=== PATIENT | male | born 1960 | race Hispanic/Latino ===

== ENCOUNTER → 2017-06-05 | Outpatient (CLI) | payer OTHER | END | disposition home or self-care (01) | LOC: GMA 15:57 | PROVIDERS: ATTEND Physician Assistant | DX: R50.9 Fever, unspecified (principal) ==

== ENCOUNTER → 2017-07-10 | Outpatient (CLI) | payer OTHER | END | disposition home or self-care (01) | LOC: GMAJ 11:50 | PROVIDERS: ATTEND Family Medicine | DX: Z00.00 Encounter for general adult medical examination without abnormal findings (principal) ==

== ENCOUNTER → 2017-08-03 | Outpatient (CLI) | payer OTHER | END | disposition home or self-care (01) | LOC: US 08:37 | PROVIDERS: ATTEND Family Medicine | DX: I65.29 Occlusion and stenosis of unspecified carotid artery (principal) ==

== ENCOUNTER → 2018-07-25 | Outpatient (CLI) | payer OTHER | LOC: GMAJ 10:40 | PROVIDERS: ATTEND Family Medicine | DX: Z00.00 Encounter for general adult medical examination without abnormal findings (principal) ==

== ENCOUNTER → 2019-07-31 | Outpatient (CLI) | payer OTHER | LOC: GMAJ 10:42 | PROVIDERS: ATTEND Family Medicine | DX: Z12.5 Encounter for screening for malignant neoplasm of prostate (principal); E78.2 Mixed hyperlipidemia; I10 Essential (primary) hypertension ==

== ENCOUNTER → 2019-09-09 | Outpatient (CLI) | payer SELFPAY ==
--- NOTE | 2019-09-09 18:50 | CT ---
EXAM DESCRIPTION: Cardiac Calcium Scoring Screen: Computed Tomography. CLINICAL HISTORY: Coronary Artery Calcium Scoring COMPARISON: Ultrasound Doppler duplex evaluation of the carotid and vertebral systems July 2017 TECHNIQUE: Spiral-axial scans at 2.5 x 0.4 mm intervals through the coronary arteries without IV contrast. Special algorithm was used, and cardiac gating. No reconstructions. Total Exam DLP: 128.12 mGy-cm. This exam was performed according to our departmental CT dose-optimization program which includes automated exposure control, adjustment of the mA and/or kV according to patient size and/or use of iterative reconstruction technique; to reduce radiation dose to as low as reasonably achievable (ALARA). Some images may have been skipped or repeated due to the heart rhythm or respiration. FINDINGS: The patient has a total Agatston calcium score of 572. This places the patient in the 80th percentile in comparison to a group of patients asymptomatic for coronary artery disease with the same age and gender. This means that 80% of males, ages 61-65 have calcium scores lower than the patient. Right coronary artery, circumflex artery, and left main artery are primarily affected. The included mediastinum, bilateral benjamin, and included chandu-hilar lung minimal perihilar peribronchial wall cuffing. Inferior right pleural scarring, no enlarged lymph nodes in the included hilum or mediastinum. IMPRESSION: 1. Total coronary artery calcium score of 972. 80th percentile for age and gender. 2. The included mediastinum, lung, and chandu-hilar areas show no significant findings. Electronically signed by: Luis Miguel Persaud MD 09/09/2019 6:49 PM [employer]
== END ==
LOC: CT 07:51
PROVIDERS: ATTEND Family Medicine
DX: Z82.49 Family history of ischemic heart disease and other diseases of the circulatory system (principal)